=== PATIENT | female | born 1955 | race Caucasian/White ===

== ENCOUNTER 2017-05-03 12:32 | Emergency (ER) | payer OTHER ==
[~2017-05-03] VITALS: Ht 167.6 cm; Wt 68.0 kg
[~2017-05-03 12:32] MED LIST: AMOX-291 PO; BIOTIN PO; ESTR8.1S2 TP; HYDR-882 PO; HYDR1TAB14 PO; OMEP-110 PO; PREDISONE PO; PROG200C15 PO; RIVA10TA PO; VIT B12 PO; VIT D3 PO; VITA1TAB19 PO; [UNRECOGNIZED DRUG - OTHER] PO
[2017-05-03 13:23] LABS: HEMATOCRIT 43.4 % (34.6-47.8); HEMOGLOBIN 15.2 g/dL (11.7-16.4); WHITE BLOOD COUNT 9.3 x10^3/uL (3.4-10)
[2017-05-03] MEDS ORDERED: MAALOX/HYOSCYAMINE/LIDOCAINE 45 ML BTL PO ONE (13:30)
[2017-05-03 13:35] LABS: ASPARTATE AMINO TRANSFERASE 24 U/L (15-37); BLOOD UREA NITROGEN 13 mg/dL (7-18)
[2017-05-03] MEDS ORDERED: MAALOX/HYOSCYAMINE/LIDOCAINE 45 ML BTL ONE (13:43)
[2017-05-03 15:21] LABS: IS PT STATUS REG ER OR PRE ER? YES
[2017-05-03 15:46] VITALS: BP 138/69
== END 2017-05-03 15:50 | disposition home or self-care (01) ==
LOC: ED 14:11
DX: R10.13 Epigastric pain (principal); R11.0 Nausea; Z90.49 Acquired absence of other specified parts of digestive tract
CPT/HCPCS: 36415; 71010; 80053; 83690; 84484; 85025; 93005; 99285